=== PATIENT | female | born 1960 | race Caucasian/White ===

== ENCOUNTER 2023-07-30 11:49 | Inpatient (IN) | payer OTHER ==
[~2023-07-30] VITALS: Ht 167.6 cm; Wt 155.0 kg
[2023-07-30] MEDS ORDERED: LISI20 PO (12:07)
[2023-07-30] MEDS ORDERED: METF500C PO (12:07)
[2023-07-30] MEDS ORDERED: [UNRECOGNIZED DRUG - CODE] PO (12:07)
[2023-07-30] MEDS ORDERED: ALLO100 PO (12:08)
[2023-07-30] MEDS ORDERED: LEVSOD75 PO (12:08)
[2023-07-30] MEDS ORDERED: FURO40 PO (12:08)
[2023-07-30] MEDS ORDERED: Insulin Human Lispro 100 Units/ML 3ML Syringe SC ONE (12:55)
[2023-07-30] MEDS ORDERED: Furosemide 10 MG/ML 4ML Vial IV ONE (12:55)
[2023-07-30] MEDS ORDERED: Levothyroxine Sodium 0.075 MG Tab PO ONE ×2 (12:55→16:00)
[2023-07-30] MEDS ORDERED: Atorvastatin 10 MG Tab PO ONE (14:25)
[2023-07-30] MEDS ORDERED: Acetaminophen 325 MG TABLET PO PRN (14:30)
[2023-07-30] MEDS ORDERED: Ondansetron HCl 2 MG / ML 2ML Vial IV PRN (14:30)
[2023-07-30] MEDS ORDERED: FLU VACC QS2023-24(6MOS UP)/PF 60 MCG/0.5 ML SYRINGE IM SCH (14:30)
[2023-07-30 14:36] LABS: Bicarbonate Venous 29.2 mmol/L (24.0-30.0); PCO2 Venous 56.5 mmHg (38-42); pH Blood Venous 7.37 (7.34-7.37)
[2023-07-30 15:13] LABS: Source, Urine Clean Catch
[2023-07-30 15:18] LABS: Appearance, Urine Hazy (Clear); Bilirubin, Urine Neg (Neg); Blood, Urine 5+ (Neg); Color, Urine Yellow (P-Yellow); Glucose Qualitative, Urine 4+ (Neg); Ketones, Urine Neg (Neg); Leukocyte Esterase, Urine 1+ (Neg); Nitrite, Urine Neg (Neg); Protein, Urine 2+ (Neg); Urobilinogen, Urine NORM (Normal)
[2023-07-30 15:43] LABS: Bacteria Mod /hpf; Mucus Light (0-Heavy); Red Blood Cells, Urine TNTC /hpf (0-2); Squamous Epithelial Cells Rare /hpf (Few)
[2023-07-30 16:30] LABS: Influenza A, PCR NEGATIVE (NEGATIVE); Influenza B, PCR NEGATIVE (NEGATIVE); Resp Syncytial Virus, PCR NEGATIVE (NEGATIVE); SARS-Cov-2 (COVID-19) PCR, MMC NEGATIVE (NEGATIVE)
[2023-07-30] MEDS ORDERED: Insulin Human Lispro 100 Units/ML 3ML Syringe SC SCH ×2 (16:30→21:00)
[2023-07-30 17:01] VITALS: BP 139/74
--- NOTE | 2023-07-30 18:22 | NUR ---
SHIFT SUMMARY PT AOX4, 2 MAX ASSIST BUT THE PT HAS NOT BEEN OUT OF BED SINCE ADMIT THIS AFTERNOON. PURWICK IN PLACE TO PREVENT SKIN BREAKDOWN, GROIN IS RED AND POWDER WAS APPLIED. POWER ALSO APPLIED TO REDNESS UNDER THE BREASTS. PT IS ON 4L NC, RA AT BASELINE. NO COMPLAINTS FROM THE PT SINCE ADMIT. NO EVENTS PER TELE. CALL LIGHT WITHIN REACH, BED IN THE LOWEST POSITION. WILL REPORT TO ONCOMING NURSE.
[2023-07-30 18:35] LABS: Bicarbonate Venous 31.3 mmol/L (24.0-30.0); PCO2 Venous 70.4 mmHg (38-42); pH Blood Venous 7.33 (7.34-7.37)
[2023-07-30 19:10] VITALS: BP 132/59
[2023-07-30] MEDS ORDERED: THERA-D2000 UNIT PO (19:24)
[2023-07-30] MEDS ORDERED: ATOR40TA PO (19:24)
[2023-07-30] MEDS ORDERED: Docusate Sodium 100 MG Cap PO SCH (21:00)
[2023-07-30] MEDS ORDERED: Insulin Glargine-Yfgn 100 Unit/mL 3 ML SYR SC SCH (21:00)
[2023-07-31 04:11] VITALS: BP 108/60
--- NOTE | 2023-07-31 04:43 | NUR ---
1900: ASSUMED CARE OF PT, BEDSIDE REPORT RECEIVED FROM DAY SHIFT RN. PT IS LAYING IN BED WITH HOB ELEVATED. A/O X4, OXYGEN AT 3.5 LPM NC, CHANGED TO CPAP BY RT DURING THE SHIFT. PRODUCTION LEADER IN PLACE. PURE WICK IN PLACE R/T IMOBILITY. PT TOLERATING WELL. NO ACUTE EVENTS DURING THE SHIFT. SAFETY MEASURES TAKEN, ALL NEEDS ADDRESSED.
[2023-07-31 05:44] LABS: BASOPHILS ABSOLUTE AUTO 0.03 K/mm3 (0.00-0.23); BASOPHILS PERCENT AUTO 0 % (0-2); EOSINOPHILS ABSOLUTE AUTO 0.07 K/mm3 (0.00-0.68); EOSINOPHILS PERCENT AUTO 1 % (0-6); Hematocrit 34.9 % (33.0-51.0); Hemoglobin 11.2 g/dL (11.5-16.0); IMMATURE GRAN ABSOLUTE AUTO 0.03 K/mm3 (0.00-0.10); IMMATURE GRAN PERCENT AUTO 0 % (0-1); LYMPHOCYTES ABSOLUTE AUTO 1.11 K/mm3 (0.84-5.20); LYMPHOCYTES PERCENT AUTO 14 % (21-46); MONOCYTES ABSOLUTE AUTO 0.69 K/mm3 (0.16-1.47); MONOCYTES PERCENT AUTO 9 % (4-13); Mean Corpuscular HGB 31.3 pg (26.0-34.0); Mean Corpuscular HGB Conc 32.1 g/dL (31.5-36.5); Mean Corpuscular Volume 98 fL (80-100); Mean Platelet Volume 11.2 fL (9.1-12.4); NEUTROPHILS ABSOLUTE AUTO 6.06 K/mm3 (1.96-9.15); NEUTROPHILS PERCENT AUTO 76 % (41-73); Platelet Count 169 K/mm3 (150-400); RDW Coefficient Variation 15.3 % (11.7-14.2); RDW Standard Deviation 54.9 fL (35.1-46.3); Red Blood Cell Count 3.58 M/mm3 (3.80-5.20); White Blood Cell Count 7.99 K/mm3 (4.00-11.30)
[2023-07-31] MEDS ORDERED: Levothyroxine Sodium 0.15 MG Tab PO SCH (06:00)
[2023-07-31 06:18] LABS: Magnesium, Blood 1.8 mg/dL (1.6-2.4)
[2023-07-31 06:19] LABS: Albumin, Blood 2.6 g/dL (3.4-5.0); Albumin/Globulin Ratio 0.7 (0.8-1.8); Bilirubin, Total 0.8 mg/dL (0.1-1.0); Bun/Creatinine Ratio 15.3 (12.0-20.0); Calcium, Blood 8.7 mg/dL (8.5-10.1); Creatinine, Blood 0.92 mg/dL (0.40-1.00); Globulin, Blood 3.9 g/dL (2.2-4.0); Potassium, Blood 3.2 mmol/L (3.5-5.5); Total Protein, Blood 6.5 g/dL (6.4-8.2)
[2023-07-31 07:15] VITALS: BP 123/61
[2023-07-31] MEDS ORDERED: Enoxaparin 40 MG/0.4 ML SYR SC SCH (09:00)
[2023-07-31] MEDS ORDERED: Furosemide 10 MG/ML 4ML Vial IV SCH (09:00)
[2023-07-31] MEDS ORDERED: Losartan Potassium 25 MG Tab PO SCH (09:00)
[2023-07-31] MEDS ORDERED: Potassium Chloride 20 MEQ TabCR PO ONE (12:00)
[2023-07-31 15:49] VITALS: BP 108/53
--- NOTE | 2023-07-31 18:02 | NUR ---
SHIFT SUMMARY PT AOX4, BR AT THIS TIME BUT PT AND OT ARE ORDERED. ROSACK IN PLACE, STRICT I'S AND O'S BEING DOCUMENTED. 1800ML FLUID RESTRICTION AND THE PT IS COMPLIANT. NO COMPLAINTS FROM THE PT TODAY OTHER THAN SHE IS BORED. NEREIDA CHANGED THIS SHIFT. PT RESPOSITIONED. CALL LIGHT WITHIN REACH, BED IN THE LOWEST POSITION. WILL REPORT TO ONCOMING NURSE.
[2023-07-31 20:02] VITALS: BP 124/65
[2023-07-31 20:05] LABS: THYROGLOBULIN ANTIBODY 32.8 IU/mL (0.0-4.0); THYROID PEROXIDASE (TPO) AB 0.4 IU/mL (0.0-9.0)
[2023-08-01 03:10] VITALS: BP 119/60
--- NOTE | 2023-08-01 04:44 | NUR ---
190O: ASSUMED CARE OF PT, BEDSIDE REPORT RECEIVED FROM DAYSHIFT RN. PT IS LAYING IN BED ON HER BACK, A/OX4. NO ACUTE DISTRESS NOTED. BREATHING IS EVEN AND UNLABORED AT REST WITH OXYGEN AT 4LNC. PT USES CPAP WHEN SLEEPING. PURE WICK IN PLACE. FLUID RESTRICTION NOTED. SAFETY MEASURES TAKEN. ALL NEEDS ADDRESSED, NO ACUTE EVENTS DURING THE SHIFT.
[2023-08-01 07:16] VITALS: BP 125/66
[2023-08-01 08:34] LABS: TSH RECEPTOR ANTIBODY 1.31 IU/L (<=1.75)
[2023-08-01 16:00] VITALS: BP 115/61
--- NOTE | 2023-08-01 19:32 | NUR ---
SHIFT SUMMARY A&O X 4, VSS. PLEASANT & COOPERATIVE WITH ALL CARE. IS ON 3-4 L'S VIA NC WITH SATS >95%. CONT BI-OX FOR CPAP FOR SLEEP. WILL OCCASIONALLY WEAR CPAP DURING DAY FOR NAPS. IS ABLE TO GET OOB TO CHAIR WITH ASSIST X 1-2 WITH FWW. BASELINE IS AMBULATION W/CANE. SAT UP IN CHAIR FOR LUNCH, STAYED UP IN [facility] FOR A FEW HOURS. PARTICIPATED WITH PT & OT TODAY. APPETITE IS GOOD. BG'S COVERED PER EMAR. NO C/O PAIN. CALL LIGHT WITHIN REACH, BED IN LOW POITION. IS ABLE TO MAKE NEEDS KNOWN. PLAN IS POSS DC TO SNF PRIOR TO RETURN TO [facility].
[2023-08-01 19:42] VITALS: BP 101/52
[2023-08-02 03:24] VITALS: BP 147/77
--- NOTE | 2023-08-02 06:23 | NUR ---
PATIENT IS ALERT AND ORIENTED X4. ON TELE SINUS 72. PLACED ON CPAP, CONT. BIOX. WITH PIV LINE ON RIGHT ARM PATENT AND INTACT. ON BLOOD SUGAR CHECK, MEDICATED ACCORDINGLY. COMPLAINT OF HEADACHE, MEDICATED ACCORDINGLY. SLEPT FAIRLY. NEEDS ATTENDED. CALL LIGHT WITHIN PATIENT'S REACH. WILL CONTINUE TO MONITOR.
[2023-08-02 07:31] VITALS: BP 111/58
[2023-08-02 09:09] LABS: Hematocrit 37.5 % (33.0-51.0); Hemoglobin 11.7 g/dL (11.5-16.0)
[2023-08-02 09:51] LABS: Anion Gap Unable to Calculate mmol/L (6-16); Blood Urea Nitrogen 16 mg/dL (8-24); Bun/Creatinine Ratio 15.4 (12.0-20.0); CO2, Blood 39 mmol/L (21-32); Calcium, Blood 8.9 mg/dL (8.5-10.1); Chloride, Blood 101 mmol/L (98-108); Creatinine, Blood 1.04 mg/dL (0.40-1.00); Glomerular Filtration Rate 61 (60-); Glucose, Blood 174 mg/dL (70-99); Potassium, Blood 3.5 mmol/L (3.5-5.5); Sodium, Blood 139 mmol/L (136-145)
[2023-08-02 15:52] VITALS: BP 122/52
[2023-08-02] MEDS ORDERED: Furosemide 10 MG/ML 4ML Vial IV SCH (18:00)
--- NOTE | 2023-08-02 19:41 | NUR ---
SHIFT SUMMARY A&O X 4, VSS. IS ON 4 L'S NC WHEN AWAKE WITH SATS >95%. WILL DESAT TO 85-89% ON 4 L'S WHEN NAPPING. CPAP PLACED FOR ALL NAPS TO KEEP SATS >95%. WITH DEEP BREATHING SATS WILL RETURN TO 95% ON 4 L'S NC. PT TO CHAIR FOR MEALS, SHOWERED TODAY WITH ASSIST. IS ON CONT BIOX. IS PLEASANT & COOPERATIVE WITH ALL CARE. BED IN LOW POSITION, CALL LIGHT WITHIN REACH. ABLE TO MAKE NEEDS KNOWN. PLAN IS FOR SNF UPON DC.
[2023-08-02 20:21] VITALS: BP 108/52
[2023-08-03 04:17] VITALS: BP 130/98
--- NOTE | 2023-08-03 04:43 | NUR ---
PATIENT IS ALERT AND ORIENTED , ON NASAL CANNULA AT 4LPM; ON TELE SINUS RHYTHM 70. WITH PIV LINE ON RIGHT ARM PATENT AND INTACT. BLOOD SUGAR CHECKED DONE, MEDICATED ACCORDINGLY. VITAL SIGNS TAKEN AND RECORDED. CPAP PLACED, ON BIOX. NO COMPLAINTS MADE. NEEDS ATTENDED. REQUESTS TO PUT BACK ON NASAL CANNULA THIS AM. FOR SNF PLACEMENT. CALL LIGHT WITHIN PATIENT'S REACH. WILL CONTINUE TO MONITOR.
[2023-08-03 06:30] LABS: Anion Gap Unable to Calculate mmol/L (6-16); Blood Urea Nitrogen 20 mg/dL (8-24); CO2, Blood 43 mmol/L (21-32); Calcium, Blood 8.7 mg/dL (8.5-10.1); Chloride, Blood 96 mmol/L (98-108); Creatinine, Blood 1.11 mg/dL (0.40-1.00); Glomerular Filtration Rate 56 (60-); Glucose, Blood 154 mg/dL (70-99); Sodium, Blood 138 mmol/L (136-145)
[2023-08-03] MEDS ORDERED: Potassium Chloride 20 MEQ TabCR PO ONE (07:30)
[2023-08-03 08:05] VITALS: BP 120/55
[2023-08-03 15:47] VITALS: BP 113/57
--- NOTE | 2023-08-03 17:13 | NUR ---
SHIFT SUMMARY A&O X 4, VSS. IS PLEASANT & COOPERATIVE WITH ALL CARE. HAS BEEN ON 3-4 L'S O2 VIA NC, IS ON CONT BIOX WITH SATS >95%. WEANED O2 DOWN TO 3 L'S. PT HAS PRODUCTIVE COUGH. PT IS GETTING UP TO CH FOR MEALS & TO USE BSC. HAD BM TODAY. ENCOURAGING PT TO DO MORE FOR HERSELF. BLOOD SUGARS COVERED WITH INSULIN PER EMAR. APPETITE IS GOOD. USES CPAP FOR NAPPING & AT NOC. IS ADHERING TO FLUID RESTRICTION. DC PLAN IS FOR SNF. PT IS FROM [facility].
[2023-08-03 19:55] VITALS: BP 108/66
[2023-08-04 03:00] VITALS: BP 111/58
--- NOTE | 2023-08-04 06:04 | NUR ---
SHIFT SUMMARY: FLOYD IS A&OX4. VSS, NO ACUTE EVENTS OVERNIGHT. SHE IS TOLERATING PO INTAKE WELL, ADHERED TO THE FLUID RESTRICTION, AND IS INDEPENDENT TO THE BEDSIDE COMMODE. SHE IS CONTINENT OF BLADDER AND BOWEL. O2 VIA NC @ 3 LPM MAINTAINING SATS >90%, CONTINUOUS PULSE OX IN PLACE. PT DID USE CPAP FOR THE MAJORITY OF THE NIGHT. IV TO R WRIST PATENT, DRESSING CHANGED. PT IS ABLE TO TURN, REPOSITION, AND BOOST HERSELF IN BED INDEPENDENTLY. SHE IS LYING IN BED WITH THE CALL LIGHT IN REACH. WILL GIVE REPORT TO ONCOMING SHIFT.
[2023-08-04 06:14] LABS: Magnesium, Blood 1.9 mg/dL (1.6-2.4)
[2023-08-04 06:16] LABS: Anion Gap Unable to Calculate mmol/L (6-16); Blood Urea Nitrogen 20 mg/dL (8-24); Bun/Creatinine Ratio 20.1 (12.0-20.0); CO2, Blood 45 mmol/L (21-32); Calcium, Blood 8.5 mg/dL (8.5-10.1); Chloride, Blood 97 mmol/L (98-108); Creatinine, Blood 0.99 mg/dL (0.40-1.00); Glomerular Filtration Rate 64 (60-); Glucose, Blood 143 mg/dL (70-99); Potassium, Blood 3.1 mmol/L (3.5-5.5); Sodium, Blood 138 mmol/L (136-145)
[2023-08-04 07:13] VITALS: BP 98/48
[2023-08-04] MEDS ORDERED: Potassium Chloride 20 MEQ TabCR PO ONE (07:25)
--- NOTE | 2023-08-04 08:30 | NUR ---
8 BEAT RUN OF VTACH PER BEE RANCHER REPORT. PT ASYMPTOMATIC AT THIS TIME.
[2023-08-04] MEDS ORDERED: Spironolactone 12.5 MG TAB PO SCH (09:00)
[2023-08-04 10:31] VITALS: BP 138/75
[2023-08-04 15:32] VITALS: BP 128/64
--- NOTE | 2023-08-04 17:00 | NUR ---
SHIFT SUMMARY A&OX4, COOPERATIVE [facility] CARE. DENIES CP/PRESSURE, HEADACHE, DIZZINESS. SOB WITH EXERTION. CURRENTLY ON 4L O2 VIA NC, SATTING AT 92%. PATIENT HAD MULTIPLE WET PULLUPS AND A BED CHANGE. CBG TRENDING UP T/O SHIFT. WORKED WITH PT/OT TODAY. DENIED ANY PAIN DURING SHIFT. PAPER TUBE GRADER REPORTED 8 BEAT VTACH AT 0809 THIS AM. PATIENT ASYMPTOMATIC. BED IN THE LOWEST POSITION. CALL LIGHT WITH REACH.
[2023-08-04 20:04] VITALS: BP 121/61
[2023-08-05 04:11] VITALS: BP 105/57
[2023-08-05 05:41] LABS: Anion Gap Unable to Calculate mmol/L (6-16); Blood Urea Nitrogen 19 mg/dL (8-24); Bun/Creatinine Ratio 19.1 (12.0-20.0); CO2, Blood 44 mmol/L (21-32); Calcium, Blood 8.6 mg/dL (8.5-10.1); Chloride, Blood 94 mmol/L (98-108); Creatinine, Blood 0.99 mg/dL (0.40-1.00); Glomerular Filtration Rate 64 (60-); Glucose, Blood 150 mg/dL (70-99); Potassium, Blood 3.3 mmol/L (3.5-5.5); Sodium, Blood 137 mmol/L (136-145)
[2023-08-05 07:12] VITALS: BP 110/55
[2023-08-05] MEDS ORDERED: Potassium Chloride 20 MEQ TabCR PO ONE (07:20)
--- NOTE | 2023-08-05 07:26 | NUR ---
Shift Summary Pt AOx4, used CPAP with 3L bleed in until 0400. We discussed placing a purewick but pt decided on using the BSC. She was able to independently use the BSC t/o the night and had one incontinent void. She switched to NC at 0400 and I raised her O2 up to 4L to maintane 89-93% saturation. Pt on tele running sinus jayant around 58.
[2023-08-05 14:22] LABS: SARS-Cov-2 (COVID-19) PCR, MMC NEGATIVE (NEGATIVE)
[2023-08-05] MEDS ORDERED: SPIR25 PO (15:44)
[2023-08-05] MEDS ORDERED: LASIX40 MG PO (15:44)
--- NOTE | 2023-08-05 15:55 | NUR ---
DISCHARGE A&OX4, COOPERATIVE WITH CARE, INDEPENDENT TO BSC AND BATHROOM. WEAK GAIT. KNOWS HER LIMITS. DENIES ANY CP/PRESSURE, HEADACHE, DIZZINESS. SOB WITH EXERTION. CURRENTLY ON 3L O2 VIA NC. DENIED ANY PAIN DURING THIS SHIFT. DISCUSSED DISCHARGE WITH PATIENT. NO QUESTIONS OR CONCERNS. IV REMOVED BY PROPERTY WORKER'S. WHEELCHAIR ESCORT TO [facility] FOR DISCHARGE.
[2023-08-05] MEDS ORDERED: Furosemide 40 MG Tab PO SCH (18:00)
== END 2023-08-05 16:18 | DRG 291 ==
LOC: ER 11:49 → MEDS 11:50
PROVIDERS: Emergency Medicine; Internal Medicine; ADMIT Student in an Organized Health Care Education/Training Program
DX: I11.0 Hypertensive heart disease with heart failure (principal); I50.33 Acute on chronic diastolic (congestive) heart failure; J96.01 Acute respiratory failure with hypoxia; J96.02 Acute respiratory failure with hypercapnia; Z68.43 Body mass index [BMI] 50.0-59.9, adult; I31.39 Other pericardial effusion (noninflammatory); Z59.01 Sheltered homelessness; R79.1 Abnormal coagulation profile; E87.6 Hypokalemia; J98.4 Other disorders of lung; R94.6 Abnormal results of thyroid function studies; G47.33 Obstructive sleep apnea (adult) (pediatric); E03.9 Hypothyroidism, unspecified; E11.65 Type 2 diabetes mellitus with hyperglycemia; R00.1 Bradycardia, unspecified; Z79.84 Long term (current) use of oral hypoglycemic drugs; Z11.52 Encounter for screening for COVID-19
CPT/HCPCS: 0241U; 36415; 71046; 71260; 80048; 80053; 81001; 82533; 82803; 82947; 83036; 83520; 83735; 83880; 83930; 84439; 84443; 84481; 84484; 85014; 85018; 85025; 85379; 86376; 86800; 93005; 93010; 93306; 93971; 94660; 94762; 96372; 96374-59; 96376; 97110; 97116; 97162; 97165; 97530; 97535; 99285-25; A9270; G0378; J1650; J1815; J1940; Q9967; U0002

== ENCOUNTER → 2023-07-30 | Outpatient (CLI) | payer OTHER ==
[~2023-07-30] MED LIST: ALLO100 PO; ATOR40TA PO; FURO40 PO; LASIX40 MG PO; LEVSOD75 PO; LISI20 PO; METF500C PO; SPIR25 PO; THERA-D2000 UNIT PO; [UNRECOGNIZED DRUG - CODE] PO
[2023-07-30 10:50] LABS: BASOPHILS ABSOLUTE AUTO 0.03 K/mm3 (0.00-0.23); BASOPHILS PERCENT AUTO 0 % (0-2); EOSINOPHILS ABSOLUTE AUTO 0.03 K/mm3 (0.00-0.68); EOSINOPHILS PERCENT AUTO 0 % (0-6); Hematocrit 39.2 % (33.0-51.0); Hemoglobin 12.4 g/dL (11.5-16.0); IMMATURE GRAN ABSOLUTE AUTO 0.05 K/mm3 (0.00-0.10); IMMATURE GRAN PERCENT AUTO 1 % (0-1); LYMPHOCYTES ABSOLUTE AUTO 0.81 K/mm3 (0.84-5.20); LYMPHOCYTES PERCENT AUTO 9 % (21-46); MONOCYTES ABSOLUTE AUTO 0.49 K/mm3 (0.16-1.47); MONOCYTES PERCENT AUTO 6 % (4-13); Mean Corpuscular HGB 30.8 pg (26.0-34.0); Mean Corpuscular HGB Conc 31.6 g/dL (31.5-36.5); Mean Corpuscular Volume 98 fL (80-100); Mean Platelet Volume 11.4 fL (9.1-12.4); NEUTROPHILS ABSOLUTE AUTO 7.26 K/mm3 (1.96-9.15); NEUTROPHILS PERCENT AUTO 84 % (41-73); Platelet Count 178 K/mm3 (150-400); RDW Coefficient Variation 15.6 % (11.7-14.2); RDW Standard Deviation 55.8 fL (35.1-46.3); Red Blood Cell Count 4.02 M/mm3 (3.80-5.20); White Blood Cell Count 8.67 K/mm3 (4.00-11.30)
[2023-07-30 11:09] LABS: Albumin, Blood 2.8 g/dL (3.4-5.0); Albumin/Globulin Ratio 0.6 (0.8-1.8); Bilirubin, Total 0.7 mg/dL (0.1-1.0); Bun/Creatinine Ratio 12.4 (12.0-20.0); Calcium, Blood 8.8 mg/dL (8.5-10.1); Creatinine, Blood 1.37 mg/dL (0.40-1.00); Globulin, Blood 4.6 g/dL (2.2-4.0); Potassium, Blood 3.9 mmol/L (3.5-5.5); Total Protein, Blood 7.4 g/dL (6.4-8.2)
[2023-07-30 11:10] LABS: Thyroid Stimulating Hormone 106.269 uIU/mL (0.360-4.800)
== END | disposition home or self-care (01) ==
LOC: LAB SHORT 10:45 → LAB 10:45
PROVIDERS: Chiropractor
DX: R06.00 Dyspnea, unspecified (principal); R94.6 Abnormal results of thyroid function studies
CPT/HCPCS: 80053; 83880; 84439; 84443; 84481; 84484; 85025; 85379